=== PATIENT | female | born 1995 | race American Indian/Alaskan Native ===

== ENCOUNTER 2017-11-14 11:41 | Day surgery (SDC) | payer MEDICAID ==
--- NOTE | 2017-11-14 09:26 | Discharge Summary ---
Short Stay Discharge Plan Activity: no restrictions Weight Bearing Status: Full Weight Bearing Diet: regular Wound: remove dressing (72hrs) Follow up with: MELISSA HIGHTOWER JR, MD [Staff Physician] - 7 Days
--- NOTE | 2017-11-14 09:28 | Short Stay Summary ---
Short Stay Documentation Date of service: 11/14/17 - Brief post op/procedure progress note Date of procedure: 11/14/17 Pre-op diagnosis: Macromastia Post-op diagnosis: same Procedure: Esteban. Breast Reduction Anesthesia: GETA Findings: RT Breast LT Breast Surgeon: MELISSA HIGHTOWER JR Estimated blood loss: 50-100ml Specimen disposition: to lab Condition: stable - Disposition Condition at discharge: Good Disposition: DC-01 TO HOME OR SELFCARE Short Stay Discharge Plan Follow up with: MELISSA HIGHTOWER JR, MD [Staff Physician] - 7 Days
[2017-11-14] MEDS ORDERED: NACL BACTERIOSTATIC INFILTRATI ONE (13:15)
[2017-11-14 13:40] LABS: Basophils % (Auto) 0.5 % (0.0-1.8); Eosinophils # (Auto) 0.3 K/mm3 (0.0-0.4); Eosinophils % (Auto) 3.4 % (0.0-4.3); Hematocrit 37.4 % (30.3-42.9); Hemoglobin 12.6 gm/dl (10.1-14.3); Lymphocytes # (Auto) 2.2 K/mm3 (1.2-5.4); Lymphocytes % (Auto) 28.8 % (13.4-35.0); Mean Corpuscular HGB Conc 34 % (30-34); Mean Corpuscular Hemoglobin 28 pg (28-32); Mean Corpuscular Volume 83 fl (79-97); Monocytes # (Auto) 0.8 K/mm3 (0.0-0.8); Monocytes % (Auto) 10.8 % (0.0-7.3); Platelet Count 294 K/mm3 (140-440); Red Blood Count 4.48 M/mm3 (3.65-5.03); Red Cell Distribution Width 14.7 % (13.2-15.2)
[2017-11-14] MEDS ORDERED: LEVAQUIN 500MG/100ML 500 MG/100 ML BAG IV NR (14:00)
[2017-11-14] MEDS ORDERED: VERSED ONE (14:09)
[2017-11-14] MEDS ORDERED: BENADRYL ONE (14:10)
[2017-11-14] MEDS ORDERED: LACTATED RINGERS 1,000 ML ONE (14:11)
[2017-11-14] MEDS ORDERED: TRANSDERM-SCOP TD ONE (14:11)
[2017-11-14] MEDS ORDERED: DILAUDID IV PRN (14:21)
[2017-11-14] MEDS ORDERED: TORADOL IV PRN (14:21)
[2017-11-14] MEDS ORDERED: ZOFRAN IV PRN (14:21)
--- NOTE | 2017-11-14 14:22 | Anesthesia Day of Surgery ---
Anesthesia Day of Surgery - Day of Surgery Patient Examined: Yes Patient H&P Reviewed: Yes Patient is NPO: Yes
--- NOTE | 2017-11-14 14:23 | Anesthesia Consultation ---
Anesthesia Consult and Med Hx Date of service: 11/14/17 - Airway Anesthetic Teeth Evaluation: Good ROM Head & Neck: Adequate Mental/Hyoid Distance: Adequate Mallampati Class: Class II Intubation Access Assessment: Probably Good - Pulmonary Exam CTA: Yes - Cardiac Exam Cardiac Exam: RRR - Pre-Operative Health Status ASA Pre-Surgery Classification: ASA2 Proposed Anesthetic Plan: General (Ga with LMA ok) - Pulmonary Hx Asthma: Yes ([facility]) - Hematic Hx Sickle Cell Disease: No - Other Systems Hx Alcohol Use: No Hx Substance Use: Yes ([facility]) Hx Cancer: No
[2017-11-14] MEDS ORDERED: DIPRIVAN 10 MG/ML IV ONE (14:51)
[2017-11-14] MEDS ORDERED: SUBLIMAZE ONE (14:51)
[2017-11-14] MEDS ORDERED: LACTATED RINGERS 1,000 ML IV SCH (15:00)
[2017-11-14] MEDS ORDERED: DECADRON ONE (15:14)
[2017-11-14] MEDS ORDERED: XYLOCAINE MPF 2% ONE (15:15)
[2017-11-14] MEDS ORDERED: ZOFRAN ONE (15:15)
[2017-11-14] MEDS ORDERED: DILAUDID ONE ×3 (15:34→17:22)
[2017-11-14] MEDS ORDERED: NORMODYNE IV ONE (15:44)
[2017-11-14] MEDS ORDERED: NACL 0.9% 1000 ML 1,000 ML ONE (17:12)
[2017-11-14 19:14] VITALS: BP 124/64
--- NOTE | 2017-11-14 20:49 | Operative Report ---
PREOPERATIVE DIAGNOSIS: Macromastia. POSTOPERATIVE DIAGNOSIS: Macromastia. PROCEDURE: Bilateral reduction mammoplasty. SURGEON: Mikhail Garcia MD ELECTRICAL CONTROLS TECHNICIAN: Talon Vargas CSA FINDINGS: Right breast 720 grams, left breast 700 grams. DESCRIPTION OF PROCEDURE: The patient was brought to the operating room and placed on the table in supine position. Following administration of general anesthesia, bilateral breasts were prepped with Betadine solution and draped in the usual sterile manner. A #10 blade scalpel was used to make a circumareolar skin incision followed by de-epithelization of an inferior dermal pedicle. Modified Ponce pattern skin markings were incised with scalpel, deepened through subcutaneous fat and breast tissue using electrocautery. Skin flaps were raised in standard manner as was fashioning of an inferior central mound pedicle. Breast tissue was resected and sent to pathology as specimen. Hemostasis was controlled using electrocautery. Closure was performed over 10 mm MIKE drains using interrupted and running subcuticular 2-0 Monocryl sutures. Mastisol, Steri-Strips, and sterile dressings were applied. The patient tolerated the procedure well and returned to recovery room in stable condition. JOB# [id number] FTW/NTS
== END 2017-11-14 11:42 | disposition home or self-care (01) ==
LOC: OR 11:41
PROVIDERS: ATTEND Plastic Surgery
DX: N62 Hypertrophy of breast (principal); M41.9 Scoliosis, unspecified; J45.909 Unspecified asthma, uncomplicated; F17.210 Nicotine dependence, cigarettes, uncomplicated; F12.90 Cannabis use, unspecified, uncomplicated; Z98.890 Other specified postprocedural states; Z79.899 Other long term (current) drug therapy
CPT/HCPCS: 19318; 36415; 81025; 85025; 88305; J1100; J1170; J1200; J1885; J1956; J2250; J2405; J2704; J3010; J7030; J7120